=== PATIENT | male | born 1945 | race American Indian/Alaskan Native ===

== ENCOUNTER 2019-04-25 15:46 | Emergency (ER) | payer MEDICARE ==
--- NOTE | 2019-04-25 17:03 | Emergency Department Report ---
HPI <LUCIE TSE - Last Filed: 04/26/19 01:15> - HPI HPI: 73-year-old -[place] male presents to the emergency department with complaint of some pain and swelling to the right groin where he has a history of a hernia. The hernia initially developed "years ago" but it has not bothered him until this morning. The pain mostly occurs when he is trying to walk around. He has not taken anything for his symptoms prior to presentation. Patient has a history of previous TIA and hypertension. No problems with bowel or bladder. <TEQUILAJHON S - Last Filed: 04/26/19 22:14> - General Chief Complaint: Skin/Abscess/Foreign Body Time Seen by Provider: 04/25/19 16:33 ED Past Medical Hx <LUCIE TSE - Last Filed: 04/26/19 01:15> - Past Medical History Hx Hypertension: Yes Hx CVA: Yes (TIA) - Surgical History Past Surgical History?: No - Social History Smoking Status: Never Smoker Substance Use Type: None <JHON MANDEL - Last Filed: 04/26/19 22:14> - Medications Home Medications: Home Medications Medication Instructions Recorded Confirmed Last Taken Type HYDROcodone/APAP 5-325 [[place] 1 each PO Q6HR PRN #10 tablet 04/25/19 Unknown Rx 5/325] Ibuprofen [Motrin 600 MG tab] 600 mg PO Q8H PRN #20 tablet 04/25/19 Unknown Rx ED Review of Systems ROS: Stated complaint: HERNIA PAIN Other details as noted in HPI <LUCIE TSE - Last Filed: 04/26/19 01:15> ROS: Stated complaint: HERNIA PAIN Other details as noted in HPI Comment: All other systems reviewed and negative Constitutional: denies: chills, fever Respiratory: denies: cough, shortness of breath Cardiovascular: denies: chest pain, palpitations Gastrointestinal: denies: abdominal pain, vomiting Genitourinary: other (groin pain). denies: dysuria Musculoskeletal: denies: back pain, arthralgia Skin: denies: rash, lesions Neurological: denies: headache, weakness <JHON MANDEL - Last Filed: 04/26/19 22:14> Physical Exam - Physical Exam Vital Signs: Vital Signs 04/25/19 04/25/19 04/25/19 16:24 22:44 23:30 Temperature 98.4 F Pulse Rate 50 L Respiratory 16 Rate Blood Pressure 162/75 Blood Pressure 170/80 [Left] O2 Sat by Pulse 98 100 97 Oximetry 04/26/19 04/26/19 00:16 01:00 Temperature Pulse Rate Respiratory Rate Blood Pressure 148/70 138/63 Blood Pressure [Left] O2 Sat by Pulse 98 98 Oximetry <FLASHLUCIE SEAMAN - Last Filed: 04/26/19 01:15> - Physical Exam Vital Signs: Vital Signs 04/25/19 16:24 Temperature 98.4 F Pulse Rate 50 L Respiratory 16 Rate Blood Pressure 170/80 [Left] O2 Sat by Pulse 98 Oximetry <JHON MANDEL - Last Filed: 04/26/19 22:14> ED Course Vital Signs 04/25/19 04/25/19 04/25/19 16:24 22:44 23:30 Temperature 98.4 F Pulse Rate 50 L Respiratory 16 Rate Blood Pressure 162/75 Blood Pressure 170/80 [Left] O2 Sat by Pulse 98 100 97 Oximetry 04/26/19 04/26/19 00:16 01:00 Temperature Pulse Rate Respiratory Rate Blood Pressure 148/70 138/63 Blood Pressure [Left] O2 Sat by Pulse 98 98 Oximetry - Reevaluation(s) Reevaluation #1: 04/26/19 01:15 I have personally evaluated this patient. On my initial evaluation, he is resting comfortably and his stretcher, and in no acute distress. He complains of nontraumatic anterior thigh, lateral and medial quadricep pain, and muscular anterior tibial pain. He has no pulse deficits, no tense compartments, he is able to walk with a slight limp, and there is no asymmetry to his bilateral lower extremities. There is no palpable cord, there is a negative Homans sign, and he denies DVT and pulmonary embolism risk factors. He does have a reproducible muscular components to his extremity pain. However, exam not consistent with cellulitis, compartment syndrome, DVT or myositis. This is most likely a muscle sprain and/or strain. The patient does not require emergent DVT study at this time. He is neurovascularly intact. 2+ pulses noted in the bilateral upper and lower extremities. There is no long bony tenderness. The pelvis is stable. The muscular compartments are soft. There is no palpable cord. There is no redness, pus or streaking. The patient will be discharged with crutches, weightbearing as tolerated, pain medication has been written by the previous physician, he will need to follow up as an outpatient. <KATLYNLUCIE - Last Filed: 04/26/19 01:15> Vital Signs 04/25/19 16:24 Temperature 98.4 F Pulse Rate 50 L Respiratory 16 Rate Blood Pressure 170/80 [Left] O2 Sat by Pulse 98 Oximetry <TEQUILAJHON Villarreal - Last Filed: 04/26/19 22:14> ED Medical Decision Making - Lab Data Result diagrams: 04/25/19 16:53 04/25/19 16:53 Vital Signs 04/25/19 04/25/19 04/25/19 16:24 22:44 23:30 Temperature 98.4 F Pulse Rate 50 L Respiratory 16 Rate Blood Pressure 162/75 Blood Pressure 170/80 [Left] O2 Sat by Pulse 98 100 97 Oximetry 04/26/19 04/26/19 00:16 01:00 Temperature Pulse Rate Respiratory Rate Blood Pressure 148/70 138/63 Blood Pressure [Left] O2 Sat by Pulse 98 98 Oximetry Lab Results 04/25/19 04/25/19 04/25/19 Range/Units 16:53 16:53 Unknown WBC 4.9 (4.5-11.0) K/mm3 RBC 5.16 H (3.65-5.03) M/mm3 Hgb 14.3 (11.8-15.2) gm/dl Hct 44.7 (35.5-45.6) % MCV 87 (84-94) fl MCH 28 (28-32) pg MCHC 32 (32-34) % RDW 13.3 (13.2-15.2) % Plt Count 210 (140-440) K/mm3 Lymph % (Auto) [place] % (Auto) [place] Eos % (Auto) [place] Baso % (Auto) [place] Lymph # [place] # [place] Eos # [place] Baso # [place] Seg Neutrophils % [place] Seg Neutrophils # [place] Sodium 141 (137-145) mmol/L Potassium 4.2 (3.6-5.0) mmol/L Chloride 104.8 (98-107) mmol/L Carbon Dioxide 23 (22-30) mmol/L Anion Gap 17 mmol/L BUN 16 (9-20) mg/dL Creatinine 0.9 (0.8-1.5) mg/dL Estimated GFR > 60 ml/min BUN/Creatinine Ratio 18 % Glucose 79 (75-100) mg/dL Calcium 9.3 (8.4-10.2) mg/dL Total Bilirubin 0.40 (0.1-1.2) mg/dL Direct Bilirubin < 0.2 (0-0.2) mg/dL Indirect Bilirubin 0.2 mg/dL AST 18 (5-40) units/L ALT 10 (7-56) units/L Alkaline Phosphatase 59 (35-129) units/L Total Protein 8.0 (6.3-8.2) g/dL Albumin 3.9 (3.9-5) g/dL Albumin/Globulin Ratio 1.0 % Urine Color Yellow (Yellow) Urine Turbidity Clear (Clear) Urine pH 7.0 (5.0-7.0) Ur Specific [place] 1.016 (1.003-1.030) Urine Protein <15 mg/dl (Negative) mg/dL Urine Glucose (UA) Neg (Negative) mg/dL Urine Ketones Neg (Negative) mg/dL Urine Blood Neg (Negative) Urine Nitrite Neg (Negative) Urine Bilirubin Neg (Negative) Urine Urobilinogen 2.0 (<2.0) mg/dL Ur Leukocyte Esterase Tr (Negative) Urine WBC (Auto) 13.0 H (0.0-6.0) /HPF Urine RBC (Auto) 2.0 (0.0-6.0) /HPF U Epithel Cells (Auto) < 1.0 (0-13.0) /HPF Urine Bacteria (Auto) 1+ (Negative) /HPF Urine Mucus Few /HPF Urine Yeast (Budding) Few /HPF - Radiology Data Radiology results: report reviewed, image reviewed <LUCIE TSE - Last Filed: 04/26/19 01:15> - Lab Data Result diagrams: 04/25/19 16:53 04/25/19 16:53 - Radiology Data Radiology results: report reviewed CT OF THE ABDOMEN AND PELVIS WITH INTRAVENOUS CONTRAST INDICATION / CLINICAL INFORMATION: Groin pain, hernia. TECHNIQUE: The patient received 100 cc Omnipaque [address] scans at this location are performed using CT dose reduction for ALARA by means of automated exposure control. COMPARISON: None available. FINDINGS: ABDOMEN: There is mild to moderate bibasilar subpleural reticular interstitial lung disease without honeycombing. There is a 2.4 cm simple cyst in the upper pole of the right kidney. There are few other tiny simple renal cysts bilaterally. The liver, spleen, gallbladder, bile ducts, pancreas, adrenal glands and bowel are normal. No adenopathy is seen. There are [id number] atherosclerotic calcifications involving the abdominal aorta and its branches without aneurysm. PELVIS: There is a moderate sized fat-containing right inguinal hernia. There is a 1 cm ovoid calcification in the hernia sac probably related to old fat necrosis. No bowel is seen in the hernia sac and there is no evidence of edema in the fat. The prostate gland is mildly enlarged. The distal ureters and urinary bladder are unremarkable. A normal appendix is present there few scattered left colonic diverticula without evidence of diverticulitis. No abnormal mass or fluid collection is seen. No acute osseous abnormality is identified. IMPRESSION: 1. Moderate fat-containing right inguinal hernia without acute complication. 2. Bilateral simple renal cysts. 3. Chronic appearing bibasilar interstitial lung disease. UIP should be considered. - Medical Decision Making This patient presents to the emergency department with complaint of some pain and swelling to the right side of the groin. He has a known history of some h ernia in the past but it has not really caused him any discomfort until recently. His labs have been unremarkable. CT scan of the abdomen and pelvis with IV contrast shows a moderate fat-containing right inguinal hernia. For this, the patient is able to follow up outpatient with general surgery and has been given a referral for Dr. Verma. The patient initially had said that he had some pain that radiated down towards his leg. However it appears the patient has separate leg pain. It appears to be from his mid thigh down to his knee. It started this morning. There has been no trauma, fall, injury or obvious inciting event. An x-ray was done of the right femur that does not show any fractures, dislocation or any acute process. Attempted to discharge the patient with crutches but any bearing weight to the right lower extremity seems to cause him severe discomfort. However he has absolutely no pain when he is at rest, there is no tenderness to palpation and he does not even appear to have any discomfort with passive movement. A right lower extremity venous Doppler ultrasound has been ordered. This will be followed by my colleague, Dr Tse, and if positive the patient will be placed on anticoagulation. If negative, the patient has referrals for 2 different local orthopedic surgeons. <JHON MANDEL - Last Filed: 04/26/19 22:14> Critical care attestation.: If time is entered above; I have spent that time in minutes in the direct care of this critically ill patient, excluding procedure time. <LUCIE TSE - Last Filed: 04/26/19 01:15> Critical Care Time: No Critical care attestation.: If time is entered above; I have spent that time in minutes in the direct care of this critically ill patient, excluding procedure time. <JHON MANDEL - Last Filed: 04/26/19 22:14> ED Disposition Is pt being admited?: No Does the pt Need Aspirin: No <LUCIE TSE - Last Filed: 04/26/19 01:15> Is pt being admited?: No Time of Disposition: 20:31 <JHON MANDEL - Last Filed: 04/26/19 22:14> Clinical Impression: Right leg pain Hypertension Qualifiers: Hypertension type: essential hypertension Qualified Code(s): I10 - Essential (primary) hypertension Inguinal hernia Qualifiers: Obstruction and gangrene presence: without obstruction or gangrene Laterality: unilateral Recurrence: not specified as recurrent Qualified Code(s): K40.90 - Unilateral inguinal hernia, without obstruction or gangrene, not specified as recurrent Disposition: - TO HOME OR SELFCARE Condition: Stable Instructions: Inguinal Hernia (ED), Hypertension (ED) Additional Instructions: Please follow up with your primary care physician in the next few days. I am giving you a referral for a local general surgeon, Dr. Verma, to follow up regarding your inguinal hernia. Please return to the emergency Department with any worsening of your symptoms including increased groin pain or swelling, abdominal pain, development of nausea or vomiting, or with any acute distress. I am giving him a referral for 2 different local orthopedic groups, Dr. Nolasco and Javed, to follow up regarding your right leg pain. Please try and stay away from foods that are high in salt and caffeinated products. Keep a blood pressure log. You have been prescribed a medication that can be sedating. Therefore, this medication cannot be taken prior to driving, working, being responsible for children, and cannot be mixed with alcohol of any quantity. Prescriptions: Ibuprofen [Motrin 600 MG tab] 600 mg PO Q8H PRN #20 tablet PRN Reason: Pain HYDROcodone/APAP 5-325 [[place] 5/325] 1 each PO Q6HR PRN #10 tablet PRN Reason: Pain Referrals: [facility] [Provider Group] - 2-3 Days AIYANA VERMA DO [Staff Physician] - 2-3 Days [facility], [Primary Care Provider] - 2-3 Days LESA NOLASCO MD [Staff Physician] - 2-3 Days
[2019-04-25 17:35] LABS: Hematocrit 44.7 % (35.5-45.6); Hemoglobin 14.3 gm/dl (11.8-15.2); Mean Corpuscular HGB Conc 32 % (32-34); Mean Corpuscular Volume 87 fl (84-94); Red Blood Count 5.16 M/mm3 (3.65-5.03); Red Cell Distribution Width 13.3 % (13.2-15.2)
[2019-04-25 17:39] LABS: Platelet Count 210 K/mm3 (140-440)
[2019-04-25 17:55] LABS: Alanine Aminotransferase 10 units/L (7-56); Albumin 3.9 g/dL (3.9-5); BUN/Creatinine Ratio 18; Blood Urea Nitrogen 16 mg/dL (9-20); Calcium 9.3 mg/dL (8.4-10.2); Hemolysis Index 29
[2019-04-25 18:04] LABS: Bilirubin,Direct < 0.2 mg/dL (0-0.2)
[2019-04-25 18:47] LABS: Bacteria,Urine 1+ /HPF (Negative); Bilirubin,Urine NEG (Negative); Blood,Urine NEG (Negative); Color,Urine Yellow (Yellow); Mucus,Urine FEW /HPF; Protein,Urine <15 mg/dL mg/dL (Negative)
--- NOTE | 2019-04-25 20:16 | Cat Scan Report ---
CT OF THE ABDOMEN AND PELVIS WITH INTRAVENOUS CONTRAST INDICATION / CLINICAL INFORMATION: Groin pain, hernia. TECHNIQUE: The patient received 100 cc Omnipaque [address] scans at this location are performed using CT dose reduction for ALARA by means of automated exposure control. COMPARISON: None available. FINDINGS: ABDOMEN: There is mild to moderate bibasilar subpleural reticular interstitial lung disease without h oneycombing. There is a 2.4 cm simple cyst in the upper pole of the right kidney. There are few other tiny simple renal cysts bilaterally. The liver, spleen, gallbladder, bile ducts, pancreas, adrenal g lands and bowel are normal. No adenopathy is seen. There are [id number] atherosclerotic calcifi cations involving the abdominal aorta and its branches without aneurysm. PELVIS: There is a moderate sized fat-containing right inguinal hernia. There is a 1 cm ovoid calcifi cation in the hernia sac probably related to old fat necrosis. No bowel is seen in the hernia sac and there is no evidence of edema in the fat. The prostate gland is mildly enlarged. The distal ureters and urinary bladder are unremarkable. A nor mal appendix is present there few scattered left colonic diverticula without evidence of diverticulit is. No abnormal mass or fluid collection is seen. No acute osseous abnormality is identified. IMPRESSION: 1. Moderate fat-containing right inguinal hernia without acute complication. 2. Bilateral simple renal cysts. 3. Chronic appearing bibasilar interstitial lung disease. UIP should be considered. Signer Name: Brendan Ogden MD Signed: 04/25/2019 8:12 PM Workstation Name: [id number]
[2019-04-25] MEDS ORDERED: KETOROLAC 30 MG/1 ML INJ IM ONE (20:57)
[2019-04-25] MEDS ORDERED: MORPHINE 2 MG/1 ML INJ IM ONE (22:32)
--- NOTE | 2019-04-25 22:42 | XRay Report ---
EXAMINATION: Right femur, 2 views CLINICAL INFORMATION: Right leg pain. No history of trauma is given. COMPARISON: None. FINDINGS: There is no evidence of acute fracture of the left femur. There is mild degenerative change of the right hip and right knee. There may be mild soft tissue swelling over the lateral aspect of the right hip. IMPRESSION: No evidence of acute bony abnormality of the right femur. Signer Name: Opal Layne MD Signed: 04/25/2019 10:38 PM Workstation Name: [id number]
[2019-04-26 01:07] VITALS: BP 138/63
[2019-04-26] MEDS ORDERED: ACETAMINOPHEN 325 MG TAB PO ONE (01:14)
== END 2019-04-26 01:51 | disposition home or self-care (01) ==
LOC: ED 15:46
DX: M79.604 Pain in right leg (principal); I10 Essential (primary) hypertension; K40.90 Unilateral inguinal hernia, without obstruction or gangrene, not specified as recurrent; Z86.73 Personal history of transient ischemic attack (TIA), and cerebral infarction without residual deficits; Z79.1 Long term (current) use of non-steroidal anti-inflammatories (NSAID); Z79.899 Other long term (current) drug therapy
CPT/HCPCS: 36415; 73552; 74177; 80048; 80076; 81001; 85025; 87086; 96372; 99285; J1885; J2270; Q9967